=== PATIENT | male | born 1985 | race Caucasian/White ===

== ENCOUNTER 2020-01-17 13:30 | Outpatient (RCR) | payer OTHER, SELFPAY ==
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
--- NOTE | 2019-12-31 15:25 | PCPTNOTE ---
Patient called & cancelled scheduled appointment this date due to being sick.
--- NOTE | 2020-01-08 13:47 | PCPTNOTE ---
Patient did not show up for scheduled appointment this date.
--- NOTE | 2020-01-10 15:33 | PCPTNOTE ---
Patient called & cancelled scheduled appointment this date stated forgot he has to help move.
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
--- NOTE | 2020-01-21 13:50 | PCPTNOTE ---
Patient did not show up for scheduled appointment this date.
--- NOTE | 2020-01-24 14:26 | PCPTNOTE ---
Patient did not show up for scheduled appointment this date.
--- NOTE | 2020-01-25 09:54 | PCPTNOTE ---
Extensive conversation with pt and his mother regarding the pt's repeated no show and cancellation of therapy visits. Explained the policy and importance of attending therapy for improved benefit. Instructed pt to perform his current HEP and to contact his MD for a new therapy order when he feels he is medically stable to attend therapy. Informed pt he will be DC from therapy at this time.
--- NOTE | 2020-01-30 09:43 | PCPTNOTE ---
Admitting Provider: Attending Provider: PHYSICIAN NOT ON STAFF Patient:Angelito Reynolds Date of :1985 Patient has not returned for any further treatments since 01/17/2020, therefore he will be discharged at this time. Patient?s initial visit was on 12/14/2019 13:15 and he had a total of 3 attended visits and 4 missed visits. The goals have been not been met. No significant progress toward improve function, improved pain or progression of HEP due to limited attendance of therapy appointment. Thank you for referring this patient to [facility]. Please review, sign, date and return this discharge summary EFRAIN. I have been updated about the patient's current status and I agree with discharge from the above service at this time. Referring Physician Date
== END 2020-03-13 23:59 | disposition home or self-care (01) ==
LOC: ANHPT 13:30
DX: M54.2 Cervicalgia (principal)
CPT/HCPCS: 97014; 97110; 97140; 97163; G0283